=== PATIENT | female | born 1945 | race Caucasian/White ===

== ENCOUNTER 2022-12-22 10:40 | Outpatient (CLI) | payer MEDICARE | END 2022-12-22 10:41 | disposition home or self-care (01) | LOC: SCSRAD 10:40 | PROVIDERS: ATTEND Internal Medicine Rheumatology | DX: M25.511 Pain in right shoulder (principal); M25.512 Pain in left shoulder; M47.816 Spondylosis without myelopathy or radiculopathy, lumbar region; M43.17 Spondylolisthesis, lumbosacral region; M19.011 Primary osteoarthritis, right shoulder; M19.012 Primary osteoarthritis, left shoulder | CPT/HCPCS: 72100 ==